=== PATIENT | male | born 1975 | race Two or more races ===

== ENCOUNTER 2020-07-19 12:33 | Emergency (ER) | payer SELFPAY ==
[2020-07-19] MEDS ORDERED: ACETAMINOPHEN 1000 MG/100 ML VIAL (NON FORMULARY) IVPB ONE (12:43)
[2020-07-19 12:53] VITALS: BMI 29.2
[2020-07-19] MEDS ORDERED: AZITHROMYCIN IVPB 500 MG in DEXTROSE 5%-WATER - 250 ML IVPB ONE (13:34)
[2020-07-19] MEDS ORDERED: CEFTRIAXONE 1,000 MG in DEXTROSE 5%-WATER - 50 ML IVPB ONE (13:34)
[2020-07-19] MEDS ORDERED: cefTRIAXone SODIUM 1 GM VIAL ONE (13:53)
[2020-07-19] MEDS ORDERED: AZITHROMYCIN 500 MG VIAL IVPB ONE (13:53)
[2020-07-19] MEDS ORDERED: ACETAMINOPHEN INJECTION 100 ML IVPB ONE (13:53)
[2020-07-19 14:14] LABS: HEMATOCRIT 46.2 % (35.4-49); HEMOGLOBIN 16.2 GM/dl (11.7-16.9); MCH 32.5 pg (25.7-33.7); MEAN CELL VOLUME 92.9 fl (80-96); MEAN PLT VOLUME 7.5 fl (7.5-11.1); PLATELET COUNT 214 K/MM3 (134-434); RBC 4.97 M/mm3 (4.00-5.60); RDW 12.3 % (11.9-15.9); WHITE BLOOD COUNT 9.2 K/mm3 (4.0-10.8)
[2020-07-19 14:24] LABS: ACTIVATED PTT 27.9 SECONDS (25.2-36.5); ALBUMIN 3.2 g/dl (3.4-5.0); ALK PHOS 163 U/L (45-117); ANION GAP 12 MMOL/L (8-16); BILIRUBIN,DIRECT 0.2 mg/dL (0.0-0.2); BILIRUBIN,TOTAL 0.8 mg/dl (0.2-1); CALCIUM 8.2 mg/dl (8.5-10); CHLORIDE 97 mmol/L (98-107); CO2 24 mmol/L (21-32); CREATININE 0.8 mg/dl (0.55-1.3); GLUCOSE,RANDOM 110 mg/dl (74-106); LDH 464 U/L (84-246); POTASSIUM 3.9 mmol/L (3.5-5.1); SGOT/AST 176 U/L (15-37); SGPT/ALT 193 U/L (13-61); SODIUM 133 mmol/L (136-145); TOT PROT 6.7 g/dl (6.4-8.2)
[2020-07-19 14:29] LABS: INR 1.26 (0.82-1.09); PROTHROMBIN TIME (PATIENT) 13.9 SEC (10.2-13.0)
[2020-07-19] MEDS ORDERED: DEXAMETHASONE SOD PHOSPHATE 10 MG/1 ML VIAL IVPUSH ONE (15:11)
[2020-07-19 15:22] LABS: EPITHELIAL CELLS RARE /hpf
[2020-07-19] MEDS ORDERED: DEXAMETHASONE SOD PHOSPHATE 10 MG/1 ML VIAL ONE (15:30)
[2020-07-19 15:33] LABS: PLATELET ESTIMATE ADEQUATE
[2020-07-19 15:50] LABS: VENOUS BASE EXCESS -1.3 mmol/L (-2-2); VENOUS O2 SATURATION 57.3 % (70-80); VENOUS PCO2 41.1 mmHg (38-52); VENOUS PH 7.38 (7.310-7.410)
[2020-07-19 15:54] VITALS: TEMP 99.1
[2020-07-19 17:53] VITALS: BP 118/77; PULSE 104
== END 2020-07-19 18:25 | disposition left against medical advice (07) ==
LOC: FER 12:33
PROC: 3E0333Z Introduction of Anti-inflammatory into Peripheral Vein, Percutaneous Approach (ICD-10-PCS; principal; 2020-07-19)
PROC: 3E03329 Introduction of Other Anti-infective into Peripheral Vein, Percutaneous Approach (ICD-10-PCS; 2020-07-19)
PROC: 3E03329 Introduction of Other Anti-infective into Peripheral Vein, Percutaneous Approach (ICD-10-PCS; 2020-07-19)
PROC: 3E033GC Introduction of Other Therapeutic Substance into Peripheral Vein, Percutaneous Approach (ICD-10-PCS; 2020-07-19)
DX: U07.1 COVID-19 (principal); R09.02 Hypoxemia; R06.02 Shortness of breath
CPT/HCPCS: 36415; 71045-TC-FY; 80053; 81003; 81015; 82248; 82550; 82728; 82803; 83605; 83615; 84484; 85025; 85379; 85610; 85730; 86140; 86769; 87040; 87086; 87804; 93005; 99285-25; C9803; J0131; J1100; U0003